=== PATIENT | female | born 1970 | race Caucasian/White ===

== ENCOUNTER → 2019-05-28 09:44 | Outpatient (BNVA) | payer MEDICARE, MEDICAID, SELFPAY | PROVIDERS: Visit Provider Nurse Practitioner Psychiatric/Mental Health | DX: F33.41 Major depressive disorder, recurrent, in partial remission (principal); F41.1 Generalized anxiety disorder; F17.210 Nicotine dependence, cigarettes, uncomplicated | CPT/HCPCS: 99214 ==

== ENCOUNTER 2019-07-11 13:02 | Outpatient (CLI) | payer MEDICARE, MEDICAID, SELFPAY ==
--- NOTE | 2019-07-11 13:30 | USCV_ITS ---
Tatiana Marie Age: 48 Gender: F : 1970 Exam Date: 07/11/2019 13:45 Ordering Phys: Whitney Mcgill [employer]VENUE FIELD AGENT Technologist: Lupe Orellana Exam Location: [facility] [place] Indication: Lower extremity edema, left knee pain HISTORY: Left lower extremity edema and pain. PROCEDURES: Comparison: 09-11-11. Venous duplex imaging was performed in only the left lower extremity. The following venous structures were evaluated: common femoral vein, profunda vein, proximal portion of the greater saphenous vein, superficial femoral vein, and the popliteal vein. In addition, the posterior tibial and peroneal trunk were evaluated. Serial compression, augmentation maneuvers, and spectral Doppler flow evaluation were performed. FINDINGS: No evidence of DVT seen in any vessel visualized at this time. CONCLUSIONS No evidence of left lower extremity DVT. Tony Lowe MD (Electronically Signed) Final Date: 11 July 2019 16:59 S
== END 2019-07-11 13:03 | disposition home or self-care (01) ==
LOC: RAD 13:07
PROVIDERS: PCP Nurse Practitioner Family; Visit Provider Nurse Practitioner Family
DX: R60.0 Localized edema (principal); M25.562 Pain in left knee
CPT/HCPCS: 93971

== ENCOUNTER 2019-07-16 08:12 | Outpatient (CLI) | payer MEDICARE, MEDICAID, SELFPAY ==
--- NOTE | 2019-07-16 08:20 | XR_ITS ---
WS: [id number] KNEE LEFT TECHNIQUE: 3 views of the left knee CLINICAL INFORMATION: LOWER EXTREMITY EDEMA, LEFT KNEE PAIN COMPARISON: None. FINDINGS: Left knee is normal in appearance. No evidence of acute fracture dislocation. Small suprapatellar eff usion. Soft tissue edema. Patella is normal. XR/XR knee LT 3V* [id number] IMPRESSION: Small suprapatellar effusion. Soft tissue edema. No acute fractures.
== END 2019-07-16 08:13 | disposition home or self-care (01) ==
LOC: RADWPI 08:17
PROVIDERS: PCP Nurse Practitioner Family; Visit Provider Nurse Practitioner Family
DX: R60.0 Localized edema (principal); M25.562 Pain in left knee; M25.462 Effusion, left knee
CPT/HCPCS: 73562

== ENCOUNTER → 2019-08-20 08:10 | Outpatient (BNVA) | payer MEDICARE, MEDICAID, SELFPAY | PROVIDERS: PCP Nurse Practitioner Family; Visit Provider Nurse Practitioner Psychiatric/Mental Health | DX: F33.41 Major depressive disorder, recurrent, in partial remission (principal); F41.1 Generalized anxiety disorder | CPT/HCPCS: 99214 ==

== ENCOUNTER → 2019-09-24 07:41 | Outpatient (BNVA) | payer MEDICARE, MEDICAID, SELFPAY | PROVIDERS: PCP Nurse Practitioner Family; Visit Provider Nurse Practitioner Psychiatric/Mental Health | DX: F33.41 Major depressive disorder, recurrent, in partial remission (principal); F41.1 Generalized anxiety disorder; F17.210 Nicotine dependence, cigarettes, uncomplicated | CPT/HCPCS: 99214 ==

== ENCOUNTER 2019-10-25 13:56 | Outpatient (CLI) | payer MEDICARE, MEDICAID, SELFPAY ==
--- NOTE | 2019-10-25 14:00 | MM_ITS ---
WS: [id number] BILATERAL SCREENING DIGITAL MAMMOGRAM WITH CAD HISTORY: SCREENING COMPARISON: 06/18/2018 and 04/04/2017 Bilateral CC and MLO views submitted. Computer aided detection analyzed. Breast composition: There are scattered areas of fibroglandular density. No suspicious masses, microc alcifications or architectural distortion. MM/[place] [id number] IMPRESSION: BI-RADS: 1-Negative FOLLOW UP: 1 Year Follow-up
== END 2019-10-25 13:57 | disposition home or self-care (01) ==
PROVIDERS: PCP Nurse Practitioner Family; Visit Provider Nurse Practitioner Family
DX: Z12.31 Encounter for screening mammogram for malignant neoplasm of breast (principal)
CPT/HCPCS: 77067

== ENCOUNTER → 2019-10-30 07:42 | Outpatient (BNVA) | payer MEDICARE, MEDICAID, SELFPAY | PROVIDERS: PCP Nurse Practitioner Family; Visit Provider Nurse Practitioner Psychiatric/Mental Health | DX: F33.41 Major depressive disorder, recurrent, in partial remission (principal); F41.1 Generalized anxiety disorder | CPT/HCPCS: 99214 ==

== ENCOUNTER 2019-11-28 13:32 | Outpatient (CLI) | payer MEDICARE, MEDICAID, SELFPAY ==
--- NOTE | 2019-11-28 13:47 | MR_ITS ---
WS: [id number] MRI LEFT KNEE HISTORY: LEFT KNEE PAIN COMPARISON: 07/16/2019 radiographs Anterior cruciate ligament: Intact. Posterior cruciate ligament: Intact. Medial collateral ligament: Intact. Posterior lateral corner structures: Intact. Medial menisci: Intact. Normal signal, size and shape. Lateral meniscus: Intact. Normal signal, size and shape. Extensor mechanism: Distal quadriceps tendon and patellar tendons are intact. Fluid and soft tissue: Small to moderate joint effusion. No Garcia's cyst. Osseous and articular structures: Patellofemoral compartment: Normal position of the patella. There is a full-thickness cartilage defec t just lateral to the midline patellar eminence. This is a very small shallow defect but does extend to the cartilage. No marrow edema. Medial compartment: Narrowing of the medial compartment with some mild thinning of the cartilage tana g the femoral condyle. No marrow edema. Lateral compartment: Joint space and cartilage preserved. No marrow edema. MR/MR knee LT wo con* [id number] IMPRESSION: 1. Small to moderate suprapatellar effusion. 2. Full-thickness narrow cartilage defect just lateral to the midline at the p atellar eminence. 3. No meniscal tear. 4. Very mild thinning and fissuring of the cartilage in the medial compartment along the femoral condyle surface.
== END 2019-11-28 13:33 | disposition home or self-care (01) ==
LOC: RADWPI 13:35
PROVIDERS: PCP Nurse Practitioner Family; Visit Provider Nurse Practitioner Family
DX: M25.462 Effusion, left knee (principal); M25.562 Pain in left knee
CPT/HCPCS: 73721

== ENCOUNTER → 2019-12-05 10:32 | Outpatient (BNVA) | payer MEDICARE, MEDICAID, SELFPAY | PROVIDERS: PCP Nurse Practitioner Family; Visit Provider Nurse Practitioner Psychiatric/Mental Health | DX: F33.41 Major depressive disorder, recurrent, in partial remission (principal); F41.1 Generalized anxiety disorder; F17.210 Nicotine dependence, cigarettes, uncomplicated | CPT/HCPCS: 99214 ==

== ENCOUNTER → 2020-01-23 08:44 | Outpatient (BNVA) | payer MEDICARE, MEDICAID, SELFPAY | PROVIDERS: PCP Nurse Practitioner Family; Visit Provider Nurse Practitioner Psychiatric/Mental Health | DX: F33.41 Major depressive disorder, recurrent, in partial remission (principal); F41.1 Generalized anxiety disorder; F17.210 Nicotine dependence, cigarettes, uncomplicated | CPT/HCPCS: 99214 ==

== ENCOUNTER → 2020-03-23 07:54 | Outpatient (BNVA) | payer MEDICARE, MEDICAID, SELFPAY | PROVIDERS: PCP Nurse Practitioner Family; Visit Provider Nurse Practitioner Psychiatric/Mental Health | DX: F33.41 Major depressive disorder, recurrent, in partial remission (principal); F41.1 Generalized anxiety disorder; F17.210 Nicotine dependence, cigarettes, uncomplicated | CPT/HCPCS: 99214 ==

== ENCOUNTER → 2020-04-09 08:00 | Outpatient (BNVA) | payer MEDICARE, MEDICAID, SELFPAY | PROVIDERS: PCP Nurse Practitioner Family; Visit Provider Specialist | DX: R20.0 Anesthesia of skin (principal); G58.7 Mononeuritis multiplex | CPT/HCPCS: 95908 ==

== ENCOUNTER → 2020-04-16 08:21 | Outpatient (BNVA) | payer MEDICARE, MEDICAID, SELFPAY | PROVIDERS: PCP Nurse Practitioner Family; Visit Provider Nurse Practitioner Psychiatric/Mental Health | DX: F33.2 Major depressive disorder, recurrent severe without psychotic features (principal); F41.1 Generalized anxiety disorder | CPT/HCPCS: 99214 ==

== ENCOUNTER → 2020-05-19 07:59 | Outpatient (BNVA) | payer MEDICARE, MEDICAID, SELFPAY | PROVIDERS: PCP Nurse Practitioner Family; Visit Provider Nurse Practitioner Psychiatric/Mental Health | DX: F33.2 Major depressive disorder, recurrent severe without psychotic features (principal); F41.1 Generalized anxiety disorder; F17.210 Nicotine dependence, cigarettes, uncomplicated | CPT/HCPCS: 99214 ==

== ENCOUNTER → 2020-07-29 08:14 | Outpatient (BNVA) | payer MEDICARE, MEDICAID, SELFPAY | PROVIDERS: PCP Nurse Practitioner Family; Visit Provider Nurse Practitioner Psychiatric/Mental Health | DX: F33.2 Major depressive disorder, recurrent severe without psychotic features (principal); F41.1 Generalized anxiety disorder | CPT/HCPCS: 99214 ==

== ENCOUNTER 2020-07-31 10:00 | Outpatient (CLI) | payer MEDICARE, MEDICAID, SELFPAY ==
--- NOTE | 2020-07-31 10:12 | XR_ITS ---
WS: [id number] Lumbar spine, 3 views, 07/31/2020 Clinical Data: BACK PAIN, LUMBAR WITH RADICULOPATHY Comparison: None. Findings: No compression fractures or subluxation is seen. No disc space narrowing is seen. The transverse proc esses and SI joints are normal. Minimal anterior osteoarthritic spurring from L2 through L5 is seen. There are clips in the right upp er quadrant from a cholecystectomy. XR/XR lumbar spine 2-3V* [id number] Impression: Minimal osteoarthritis L2-L5
== END 2020-07-31 10:01 | disposition home or self-care (01) ==
LOC: RADWPI 10:09
PROVIDERS: PCP Nurse Practitioner Family; Visit Provider Nurse Practitioner Family
DX: M54.16 Radiculopathy, lumbar region (principal); M47.816 Spondylosis without myelopathy or radiculopathy, lumbar region
CPT/HCPCS: 72100

== ENCOUNTER → 2020-08-11 09:42 | Outpatient (BNVA) | payer MEDICARE, MEDICAID, SELFPAY | PROVIDERS: PCP Nurse Practitioner Family; Referring Provider Nurse Practitioner Family; Visit Provider Anesthesiology Pain Medicine | DX: G89.29 Other chronic pain (principal); M47.816 Spondylosis without myelopathy or radiculopathy, lumbar region; M54.16 Radiculopathy, lumbar region; M54.9 Dorsalgia, unspecified; M79.604 Pain in right leg; M79.605 Pain in left leg; F17.210 Nicotine dependence, cigarettes, uncomplicated; Z78.9 Other specified health status | CPT/HCPCS: 99204 ==

== ENCOUNTER 2020-08-28 14:52 | Outpatient (CLI) | payer MEDICARE, MEDICAID, SELFPAY ==
--- NOTE | 2020-08-28 15:15 | MR_ITS ---
WS: [id number] MRI LUMBAR SPINE NONCONTRAST HISTORY: M54.16 - Radiculopathy, lumbar region COMPARISON: None available. TECHNIQUE: Sagittal and axial multisequence imaging is submitted. Survey of the entire spine demonstrates mild narrowing of the cervical canal at C5-6. Within the cerv ical cord at C5-C7 is increased signal which may represent a syrinx or simply be artifact. Straightening of the normal lumbar lordosis. There are 4 lumbar type vertebral bodies. There are only 4 rib-bearing vertebral bodies. This finding is confirmed from review of CT from 10/09/2018. Disc spaces and vertebral body heights are well-preserved. Conus terminates normally at T12. L1-L2: Normal. L2-L3: Moderate annular disc bulging. Annular fissure in the LEFT subarticular disc. Mild facet joint arthritis. Fluid in the facet joints bilaterally. There is mild bilateral foraminal stenosis. L3-L4: Mild annular disc bulging with ligamentum flavum hypertrophy and facet arthritis. Disc is asym metrically more prominent extending to the LEFT. Mild bilateral foraminal stenosis. L4-L5: Mild annular disc bulging. Moderate facet joint arthritis and ligamentum flavum disease. There is encroachment into the subarticular recesses, greatest on the LEFT with moderate LEFT foraminal st enosis. Only mild RIGHT foraminal narrowing. Fluid in the facet joints bilaterally. Small facet joint cyst measures 5 mm on the LEFT. Small follicles LEFT ovary. MR/MR lumbar spine wo con* [id number] IMPRESSION: 1. 4 lumbar type vertebral bodies are identified. 2. Mild bilateral foraminal stenosis at L2-3 and L3-4 due to disc bulging and facet joint arthritis. 3. Moderate LEFT foraminal and LEFT subarticular recess stenosis at L4-5 due t o combination of disc disease and facet arthritis. 4. Mild central stenosis at L4-5.
== END 2020-08-28 14:53 | disposition home or self-care (01) ==
LOC: RADSHAW 14:56
PROVIDERS: PCP Nurse Practitioner Family; Visit Provider Anesthesiology Pain Medicine
DX: M54.16 Radiculopathy, lumbar region (principal); M48.061 Spinal stenosis, lumbar region without neurogenic claudication
CPT/HCPCS: 72148

== ENCOUNTER → 2020-08-31 08:41 | Outpatient (BNVA) | payer MEDICARE, MEDICAID, SELFPAY | PROVIDERS: PCP Nurse Practitioner Family; Visit Provider Nurse Practitioner Psychiatric/Mental Health | DX: M47.816 Spondylosis without myelopathy or radiculopathy, lumbar region (principal); M54.9 Dorsalgia, unspecified; M54.16 Radiculopathy, lumbar region; M79.604 Pain in right leg; M79.605 Pain in left leg; F17.210 Nicotine dependence, cigarettes, uncomplicated; Z78.9 Other specified health status | CPT/HCPCS: 99214 ==

== ENCOUNTER → 2020-10-05 08:00 | Outpatient (BNVA) | payer MEDICARE, MEDICAID, SELFPAY | PROVIDERS: PCP Nurse Practitioner Family; Visit Provider Nurse Practitioner Psychiatric/Mental Health | DX: F33.2 Major depressive disorder, recurrent severe without psychotic features (principal); F41.1 Generalized anxiety disorder; F17.210 Nicotine dependence, cigarettes, uncomplicated | CPT/HCPCS: 99214 ==

== ENCOUNTER → 2020-11-10 07:23 | Outpatient (BNVA) | payer MEDICARE, MEDICAID, SELFPAY | PROVIDERS: PCP Nurse Practitioner Family; Visit Provider Nurse Practitioner Psychiatric/Mental Health | DX: F33.2 Major depressive disorder, recurrent severe without psychotic features (principal); F41.1 Generalized anxiety disorder; F17.210 Nicotine dependence, cigarettes, uncomplicated | CPT/HCPCS: 99214 ==

== ENCOUNTER → 2020-12-03 08:49 | Outpatient (BNVA) | payer MEDICARE, MEDICAID, SELFPAY | PROVIDERS: PCP Nurse Practitioner Family; Visit Provider Specialist | DX: G57.12 Meralgia paresthetica, left lower limb (principal); M79.7 Fibromyalgia; M51.36 Other intervertebral disc degeneration, lumbar region; M46.1 Sacroiliitis, not elsewhere classified; M70.61 Trochanteric bursitis, right hip; M70.62 Trochanteric bursitis, left hip; Y93.9 Activity, unspecified; G62.9 Polyneuropathy, unspecified; F17.210 Nicotine dependence, cigarettes, uncomplicated; G58.7 Mononeuritis multiplex | CPT/HCPCS: 20552; 64520; 80053; 84155; 84165; 85025; 85651; 86038; 86140; 99205; J1030; J3490 ==

== ENCOUNTER 2020-12-03 11:31 | Outpatient (CLI) | payer MEDICARE, MEDICAID, SELFPAY ==
[2020-12-03 12:21] LABS: Basophils # 0.1 10^3/uL (0.0-0.1); Basophils % 0.7 %; Hematocrit 51.2 % (37.0-47.0); Hemoglobin 17.1 g/dL (11.5-15.3); Lymphocytes # 3.5 10^3/uL (0.8-4.8); Lymphocytes % 43.1 %; Mean Corpuscular HGB Conc 33.4 g/dL (30.0-36.0); Mean Corpuscular Hemoglobin 32.8 pg (28.0-34.0); Mean Corpuscular Volume 98.1 fL (81-99); Mean Platelet Volume 10.8 fL (7.4-10.4); Monocytes # 0.5 10^3/uL (0.2-0.9); Monocytes % 6.1 %; Neutrophils # 4.08 10^3/uL (1.8-7.7); Neutrophils % 49.7 %; Nucleated Red Blood Cells % 0 %; Platelet Count 184 10^3/cmm (130-400); Red Blood Count 5.22 10^6/uL (4.1-5.3); Red Cell Distribution Width 13.4 % (12.1-15.1); White Blood Count 8.2 10^3/uL (4.0-10.0)
[2020-12-03 12:56] LABS: Alanine Aminotransferase 20 U/L (0-33); Albumin Level 4.1 g/dL (3.5-5.2); Alkaline Phosphatase 82 IU/L (35-105); Blood Urea Nitrogen 10 mg/dL (6-20); Calcium 8.9 mg/dL (8.5-10.5); Carbon Dioxide 25 mmol/L (22-29); Chloride 100 mmol/L (98-107); Globulin 3.4 g/dL (1.3-4.6); Glomerular Filtration Rate 75.9 mL/min (90-130); Glucose 81 mg/dL (65-115); Osmolality Calculated 280 mOsm/kg (285-295); Sodium 136 mmol/L (136-145); Total Bilirubin 0.2 mg/dL (0.15-1.2); Total Protein 7.5 g/dL (6.6-8.7)
[2020-12-03 13:17] LABS: Aspartate Amino Transferase 20 U/L (0-32)
[2020-12-03 13:18] LABS: Erythrocyte Sedimentation Rate 24 mm/hr (0-15)
[2020-12-04 06:01] LABS: PROTEIN, TOTAL 7.1 g/dL (6.1-8.1)
[2020-12-04 11:52] LABS: ALBUMIN 3.9 g/dL (3.8-4.8); ALPHA 1 GLOBULIN 0.3 g/dL (0.2-0.3); ALPHA 2 GLOBULIN 0.9 g/dL (0.5-0.9); BETA 1 GLOBULIN 0.5 g/dL (0.4-0.6); BETA 2 GLOBULIN 0.4 g/dL (0.2-0.5); GAMMA GLOBULIN 1.1 g/dL (0.8-1.7)
[2020-12-04 15:13] LABS: Anti-Nuclear Antibody Screen NEGATIVE (NEGATIVE)
== END 2020-12-03 11:32 | disposition home or self-care (01) ==
LOC: LAB 11:36
PROVIDERS: PCP Nurse Practitioner Family; Referring Provider Specialist; Visit Provider Internal Medicine
DX: G58.7 Mononeuritis multiplex (principal)
CPT/HCPCS: 80053; 84155; 84165; 85025; 85651; 86038; 86140

== ENCOUNTER → 2020-12-22 07:40 | Outpatient (BNVA) | payer MEDICARE, MEDICAID, SELFPAY | PROVIDERS: PCP Nurse Practitioner Family; Visit Provider Nurse Practitioner Psychiatric/Mental Health | DX: F33.2 Major depressive disorder, recurrent severe without psychotic features (principal); F41.1 Generalized anxiety disorder; F17.210 Nicotine dependence, cigarettes, uncomplicated | CPT/HCPCS: 99214 ==

== ENCOUNTER → 2021-01-18 15:03 | Outpatient (BNVA) | payer MEDICARE, MEDICAID, SELFPAY | PROVIDERS: PCP Nurse Practitioner Family; Referring Provider Specialist; Visit Provider Specialist | DX: G58.7 Mononeuritis multiplex (principal); M79.7 Fibromyalgia; G57.12 Meralgia paresthetica, left lower limb; M54.5 Low back pain; F17.210 Nicotine dependence, cigarettes, uncomplicated | CPT/HCPCS: 95908; 95909 ==

== ENCOUNTER → 2021-01-21 14:09 | Outpatient (BNVA) | payer MEDICARE, MEDICAID, SELFPAY | PROVIDERS: PCP Nurse Practitioner Family; Visit Provider Specialist | DX: M79.7 Fibromyalgia (principal); G62.9 Polyneuropathy, unspecified; G57.12 Meralgia paresthetica, left lower limb; F17.210 Nicotine dependence, cigarettes, uncomplicated | CPT/HCPCS: 20550; 20552; 99214; J1030; J3490 ==

== ENCOUNTER → 2021-02-16 09:36 | Outpatient (BNVA) | payer MEDICARE, MEDICAID, SELFPAY | PROVIDERS: PCP Nurse Practitioner Family; Visit Provider Nurse Practitioner Psychiatric/Mental Health | DX: F33.2 Major depressive disorder, recurrent severe without psychotic features (principal); F41.1 Generalized anxiety disorder; F17.210 Nicotine dependence, cigarettes, uncomplicated | CPT/HCPCS: 99214 ==

== ENCOUNTER 2022-01-31 20:49 | Emergency (ER) | payer MEDICARE, MEDICAID, SELFPAY ==
[2022-01-31 21:00] VITALS: BP 138/84; PULSE 111; RESP 16; TEMP 36.6; O2SAT 95
--- NOTE | 2022-01-31 21:03 | ED_ITS ---
HPI - Skin/Abscess/Foreign Bdy General: Chief complaint: Skin/Abscess/Foreign Body Stated complaint: Rash all over Time Seen by Provider: 01/31/22 21:03 History of Present Illness: 51-year-old female comes in today with itchy lesions to the upper extremities and spreading across the body. Patient is noticed the lesions over the last 2 to 3 days. Patient denies any exposure to poison almas or other irritants. Patient appears nontoxic. Patient does have a chronic wound under her left axilla. It appears patient probably has hydradenitis suppurative. Associated symptoms: Deny fever(s), nausea or vomiting Review of Systems Const: Denies: fever(s) GI: Denies: nausea or vomiting Skin/Breast: Reports: rash and pruritus PFS ED PFSH: Medical History (Updated 01/31/22 @ 21:20 by ALONSO Ellis) Generalized anxiety disorder Hypothyroidism Major depressive disorder, recurrent severe without psychotic features Morbid obesity with BMI of 40.0-44.9, adult Nicotine dependence, cigarettes, uncomplicated Psychiatric care Sacroiliitis Trochanteric bursitis of both hips Family History Father Diabetes Mother Aneurysm Denies family history of Cancer Social History Smoking and tobacco status: current every day smoker cigarettes Packs smoked per day: 1 Alcohol intake: current Alcohol intake frequency: holidays/special occasions only Counseling given: No Lives independently: Yes History of recent travel: No Physical Exam Const: COMMON NORMALS: alert HENMT: COMMON NORMALS: atraumatic HEAD & SCALP: atraumatic Neck/C-Spine: COMMON NORMALS: full ROM and no meningeal signs Resp: COMMON NORMALS: normal respiratory effort Cardio: COMMON NORMALS: regular rate RATE: regular rate GI: COMMON NORMALS: non-tender : COMMON NORMALS: Yes no CVA tenderness BLADDER/KIDNEY EXAM: Yes no CVA tenderness Back/Pelvis: COMMON NORMALS: no CVA tenderness Extremity: LEFT UPPER EXTREMITY: Yes upper arm (Draining lesion left axilla) Neuro: SENSORIUM/ORIENTATION: Yes alert MENINGEAL SIGNS: Yes no meningeal signs Skin: LESIONS: lesion noted (Draining wound left axilla) RASHES: rashes noted (Linear macular papular rashes to bilateral upper extremities.) Course Vital Signs: Vital signs: Vital Signs Temperature 97.8 F 01/31/22 21:00 Pulse Rate 111 H 01/31/22 21:00 Respiratory Rate 16 01/31/22 21:00 Blood Pressure 138/84 01/31/22 21:00 Pulse Oximetry 95 01/31/22 21:00 Oxygen Delivery Me thod 01/31/22 21:00 MDM - Skin/Abscess/Foreign Bdy Medicial Decision Making 51-year-old female comes in today for concerns of itching rash to the upper extremities spreading across the torso and body at this time. On exam patient appears nontoxic. Patient appears no acute distress. Patient has some macular papular lesions to the upper extremities in a linear pattern. Differential diagnosis includes contact dermatitis, scabies, vasculitis. I believe patient probably has scabies and a wound infection to her axillary lesion. Patient be treated for scabies with ivermectin. We will also treat for her wound infection with some Bactrim for the next 7 days. Recommended Benadryl and calamine for the itching. Patient reported understanding and agreed to plan. Discharge Plan Discharge Patient Disposition: Home Clinical Impression: Hidradenitis axillaris, Wound infection, Scabies Condition: Stable Prescriptions: New Bactrim DS 800-160 mg tablet 1 tab PO DAILY 7 Days Qty: 14 0RF ivermectin 3 mg tablet 15 mg PO DAILY Qty: 10 0RF Rx Instructions: 5 tablets now and repeat in 1 week No Action levothyroxine 137 mcg capsule 137 mcg PO DAILY Qty: 30 5RF trazodone 300 mg tablet 300 mg PO .9 pm Qty: 90 2RF Rx Instructions: Take one tablet at 9 pm alprazolam [Xanax] 0.5 mg tablet 0.5 mg PO TID PRN (Reason: anxiety) Qty: 90 3RF Rx Instructions: Take one tablet three times per day as needed for anxiety Discharge Orders: Discharge ED (Routine); Ordered 01/31/22 Ordered By: Cholo Ma Discharge Diet: Usual diet Discharge Activity: Increase activity as tolerated Patient Instructions: Scabies (ED) Activity Restrictions/Additional Instructions: Home and rest. Drink plenty of fluids. Warm moist compresses to abscess under the left arm. Take antibiotic for the abscess 1 tablet twice a day for 7 days. Follow-up with primary care or return to ER for worsening symptoms. For your itchy rash use Benadryl as needed for itching along with calamine lotion. You may also use some hydrocortisone cream if needed. Take ivermectin 5 tablets today or when prescription is filled and repeat in 1 week. Good housekeeping otherwise for the treatment of the night. Coding Level of Care Code ED Aviation Electrical Technician for Ryan Handley
[2022-01-31] MEDS: sulfamethoxazole-trimeth DS 160-800 mg Tablet 1 TAB PO (21:28)
== END 2022-01-31 21:45 | disposition home or self-care (01) ==
PROVIDERS: Emergency Provider Nurse Practitioner Family
DX: L73.2 Hidradenitis suppurativa (principal); B86 Scabies; L98.8 Other specified disorders of the skin and subcutaneous tissue; E03.9 Hypothyroidism, unspecified; E66.01 Morbid (severe) obesity due to excess calories; Z68.41 Body mass index [BMI] 40.0-44.9, adult; F17.210 Nicotine dependence, cigarettes, uncomplicated
CPT/HCPCS: 99283

== ENCOUNTER 2023-05-03 12:47 | Outpatient (CLI) | payer MEDICARE, MEDICAID, SELFPAY ==
--- NOTE | 2023-05-03 12:57 | MM_ITS ---
WS: [id number] Bilateral screening 3D tomosynthesis digital mammogram, 05/03/2023 Clinical Data: Z12.39 - Encounter for other screening for malignant neop... Comparison: 10/25/2019, 06/18/2018, 04/04/2017, 01/30/2015, 11/19/2013, 06/24/2010, 02/16/2009, 02/15/2008. Findings: The breast parenchymal pattern shows fat replacement. No spiculated masses or clustered calcification s are seen. There are no secondary signs of carcinoma. Impression: 1. Negative bilateral mammogram unchanged. 2. Recommend annual screening mammograms. MM/[place] [id number] BIRADS: 1-Negative FOLLOW UP: 1 Year Follow-up The CAD tray checker was used.
== END 2023-05-03 12:48 | disposition home or self-care (01) ==
LOC: RAD 12:47
PROVIDERS: PCP Family Medicine Adult Medicine; Visit Provider Family Medicine Adult Medicine
DX: Z12.31 Encounter for screening mammogram for malignant neoplasm of breast
CPT/HCPCS: 77063; 77067